=== PATIENT | male | born 1935 | race Caucasian/White ===

== ENCOUNTER 2016-06-11 07:23 | Inpatient (IN) | payer OTHER ==
[~2016-06-11] VITALS: Ht 182.9 cm; Wt 119.0 kg
[~2016-06-11 07:23] MED LIST: ATENOLOL100 MG PO; FINASTERIDE5 MG PO; GLIPIZIDE-METF1 EAC2 PO; LOVASTATIN20 MG PO; ZESTORETIC 20-1 EAC1 PO
[2016-06-11 08:09] LABS: INTER. NORMALIZED RATIO 1.2; PROTHROMBIN TIME 12.7 (9.2-11.2); PTT 30.1 (25-32)
[2016-06-11 08:11] LABS: CREATININE 2.1 mg/dL (0.6-1.3); POTASSIUM 4.7 mEq/L (3.7-5.4)
[2016-06-11 08:14] LABS: EOSINOPHIL (%) 0.7 % (0-5); EOSINOPHIL COUNT 0.1 K/uL (0-0.3); HEMATOCRIT 50.7 % (38.0-50.0); IMMATURE GRANULOCYTE COUNT 1.4 K/uL; LYMPHOCYTE COUNT 2.8 K/uL (1.0-2.8); MCH 28.5 PG (29.0-34.0); MCHC 32.5 G/DL (30.0-36.0); MCV 87.7 FL (86-99); MEAN PLAT.VOLUME 10.4 uM^3 (9.0-12.4); MONOCYTE COUNT 1.1 K/uL (0-0.8); NEUTROPHIL (%) 69.5 % (45-76); NEUTROPHIL COUNT 9.6 K/uL (1.8-6.4); PLATELET COUNT 285 K/uL (156-360); RBC DIS.WIDTH-SD 53.2 % (39-53); RED BLOOD COUNT 5.78 M/uL (4.00-5.50); WHITE BLOOD COUNT 13.8 K/uL (4.1-10.2)
[2016-06-11 08:24] LABS: TROP-I INTERPRETATION NEGATIVE; TROPONIN-I 0.08 ng/mL (0.0-0.30)
[2016-06-11 08:38] LABS: CHLORIDE 98 mEq/L (99-109); POTASSIUM 5.5 mEq/L (3.7-5.4); SODIUM 135 mEq/L (136-147)
[2016-06-11 08:40] LABS: GLUCOSE 229 mg/dL (70-99)
[2016-06-11 08:41] LABS: ANION GAP 21 MEQ/L (2-14)
[2016-06-11 08:42] LABS: TOTAL BILIRUBIN 1.2 mg/dL (0.0-1.0)
[2016-06-11 08:43] LABS: ALKALINE PHOSPHATASE 59 IU/L (3-129)
[2016-06-11 08:44] LABS: GFR ESTIMATE (CALCULATED) 26 mL/min/
[2016-06-11 08:45] LABS: UREA NITROGEN (BUN) 92 mg/dL (9-23)
[2016-06-11 08:47] LABS: CREATINE KINASE 187 IU/L (1-294); TOTAL CK 187 IU/L (1-294)
[2016-06-11 08:52] LABS: CK-MB 9.2 ng/mL (0.0-4.9)
[2016-06-11 10:30] VITALS: BP 103/61
[2016-06-11 11:00] VITALS: BP 107/64
[2016-06-11] MEDS ORDERED: MULTI-VITAMIN1 EAC4 PO (11:01)
[2016-06-11] MEDS ORDERED: PROBIOTIC1 EAC1 PO (11:01)
[2016-06-11] MEDS ORDERED: ATROVENT H200 INHALA IH (11:01)
[2016-06-11 11:30] VITALS: BP 106/84
[2016-06-11 12:03] LABS: D-DIMER ELISA > 4.00 mg/L FEU (< 0.57)
[2016-06-11 12:05] LABS: METH RESISTANT S AUREUS PCR NEGATIVE (NEGATIVE)
[2016-06-11 12:06] LABS: PROBE CHECK PASS; SPECIMEN PROCESSING CONTROL PASS
[2016-06-11 12:09] LABS: BASE EXCESS -7.8 mEq/L (-3 to +3); BICARBONATE 21.9 mEq/L (22-26); CARBOXY HGB 2.1 % (0-5); METHEMOGLOBIN 1.3 % (0-1.5); PCO2 60 mm Hg (35-45); PO2 42 mm Hg (80-100)
[2016-06-11 12:10] LABS: COMMENTS - BLOOD GASES A+C+; DEVICE 840; FI02 100 %; MECHANICAL RATE 16 resp/min; MODE A/C; PEEP 5 CM/H20; SITE ALINE; TIDAL VOLUME 500 ML; TOTAL RESP RATE 25 resp/min; pH 7.17 (7.35-7.45)
[2016-06-11 12:17] LABS: MAGNESIUM 3.2 mg/dL (1.3-2.7)
[2016-06-11 12:53] LABS: INTER. NORMALIZED RATIO 1.3; PROTHROMBIN TIME 13.5 (9.2-11.2); PTT 30.8 (25-32)
[2016-06-11 12:58] LABS: D-DIMER ELISA > 4.00 mg/L FEU (< 0.57)
[2016-06-11 13:07] LABS: CREATINE KINASE 185 IU/L (1-294); TOTAL CK 185 IU/L (1-294)
[2016-06-11 13:12] LABS: TROP-I INTERPRETATION NEGATIVE; TROPONIN-I 0.19 ng/mL (0.0-0.30)
[2016-06-11 13:24] LABS: CK-MB 18.3 ng/mL (0.0-4.9)
[2016-06-11 13:48] LABS: BASE EXCESS -9.8 mEq/L (-3 to +3); BICARBONATE 19.6 mEq/L (22-26); CARBOXY HGB 2.4 % (0-5); METHEMOGLOBIN 1.3 % (0-1.5); PCO2 55 mm Hg (35-45); PO2 55 mm Hg (80-100); pH 7.16 (7.35-7.45)
[2016-06-11 13:49] LABS: COMMENTS - BLOOD GASES C+; DEVICE 840; FI02 100 %; MECHANICAL RATE 22 resp/min; MODE A/C; PEEP 15 CM/H20; SITE ALINE; TIDAL VOLUME 500 ML; TOTAL RESP RATE 25 resp/min
[2016-06-11 14:15] LABS: ANION GAP 17 MEQ/L (2-14); CHLORIDE 100 MEQ/L (99-109); GFR ESTIMATE (CALCULATED) 28 mL/min/; GLUCOSE 213 mg/dL (70-99); POTASSIUM 4.8 MEQ/L (3.7-5.4); SAMPLE HEMOLYSIS CHECK 0; SAMPLE ICTERIC CHECK 0; SAMPLE LIPEMIA CHECK 0; SODIUM 136 MEQ/L (136-147); UREA NITROGEN (BUN) 86 mg/dL (9-23)
[2016-06-11 16:09] LABS: EOSINOPHIL (%) 0.1 % (0-5); HEMATOCRIT 52.7 % (38.0-50.0); IMMATURE GRANULOCYTE (%) 0.7 % (0.0-0.7); IMMATURE GRANULOCYTE COUNT 0.1 K/uL; LYMPHOCYTE COUNT 1.7 K/uL (1.0-2.8); MCH 28.7 PG (29.0-34.0); MCHC 31.5 G/DL (30.0-36.0); MEAN PLAT.VOLUME 10.7 uM^3 (9.0-12.4); MONOCYTE (%) 5.6 % (3-12); MONOCYTE COUNT 1.1 K/uL (0-0.8); NEUTROPHIL (%) 84.3 % (45-76); NEUTROPHIL COUNT 15.7 K/uL (1.8-6.4); PLATELET COUNT 303 K/uL (156-360); RBC DIS.WIDTH-CV 17.1 % (11.8-14.6); RED BLOOD COUNT 5.79 M/uL (4.00-5.50)
[2016-06-11 16:11] LABS: WHITE BLOOD COUNT 18.7 K/uL (4.1-10.2)
[2016-06-11 17:46] LABS: HEMATOLOGY COMMENT 1 SMEAR COMPATIBLE; USER ID SS
[2016-06-11 18:16] LABS: POINT-OF-CARE METER ID UU13113731
[2016-06-11 19:04] LABS: MCH 29.4 PG (29.0-34.0); MCHC 32.8 G/DL (30.0-36.0); MCV 89.5 FL (86-99); RBC DIS.WIDTH-CV 17.2 % (11.8-14.6); RBC DIS.WIDTH-SD 55.4 % (39-53); RED BLOOD COUNT 5.14 M/uL (4.00-5.50); WHITE BLOOD COUNT 13.5 K/uL (4.1-10.2)
[2016-06-11 19:11] LABS: TROP-I INTERPRETATION POSITIVE
[2016-06-11 19:14] LABS: TROPONIN-I 11.94 ng/mL (0.0-0.30)
[2016-06-11 19:16] LABS: EOSINOPHIL (%) 0 % (0-5); IMMATURE GRANULOCYTE (%) 0.2 % (0.0-0.7); LYMPHOCYTE COUNT 1.1 K/uL (1.0-2.8); MONOCYTE (%) 3.6 % (3-12); MONOCYTE COUNT 0.5 K/uL (0-0.8); NEUTROPHIL COUNT 11.9 K/uL (1.8-6.4)
[2016-06-11 19:21] LABS: INTER. NORMALIZED RATIO 1.5; PROTHROMBIN TIME 15.4 (9.2-11.2)
[2016-06-11 19:27] LABS: ANION GAP 16 MEQ/L (2-14); CHLORIDE 98 MEQ/L (99-109); GFR ESTIMATE (CALCULATED) 31 mL/min/; GLUCOSE 212 mg/dL (70-99); MAGNESIUM 2.2 mg/dl (1.3-2.7); SAMPLE HEMOLYSIS CHECK 0; SAMPLE ICTERIC CHECK 0; SAMPLE LIPEMIA CHECK 0; SODIUM 135 MEQ/L (136-147); UREA NITROGEN (BUN) 84 mg/dL (9-23)
[2016-06-11 19:29] LABS: PTT 88.4 (25-32)
[2016-06-11 19:48] LABS: FIBRINOGEN 195 MG/DL (160-450)
[2016-06-11 20:00] LABS: ALKALINE PHOSPHATASE 38 IU/L (3-129); ANION GAP 15 MEQ/L (2-14); CHLORIDE 98 MEQ/L (99-109); CREATINE KINASE 229 IU/L (1-294); GFR ESTIMATE (CALCULATED) 31 mL/min/; GLUCOSE 212 mg/dL (70-99); SAMPLE HEMOLYSIS CHECK 0; SAMPLE ICTERIC CHECK 0; SAMPLE LIPEMIA CHECK 0; SODIUM 133 MEQ/L (136-147); TOTAL BILIRUBIN 1.6 MG/DL (0.0-1.0); TOTAL CK 229 IU/L (1-294); UREA NITROGEN (BUN) 79 mg/dL (9-23)
[2016-06-11 20:14] LABS: HEMATOLOGY COMMENT 1 SMEAR COMPATIBLE
[2016-06-11 20:15] LABS: MEAN PLAT.VOLUME 10.8 uM^3 (9.0-12.4); PLATELET COUNT 195 K/uL (156-360)
[2016-06-11 20:31] LABS: CK-MB 37.1 ng/mL (0.0-4.9)
[2016-06-11 20:31] LABS: BASE EXCESS -6.5 mEq/L (-3 to +3); CARBOXY HGB 2.4 % (0-5); METHEMOGLOBIN 1.3 % (0-1.5); PCO2 48 mm Hg (35-45); PO2 49 mm Hg (80-100); pH 7.25 (7.35-7.45)
[2016-06-11 20:32] LABS: SITE R ALINE
[2016-06-11 20:34] LABS: DEVICE 840; FI02 100 %; MECHANICAL RATE 24 resp/min; MODE AC; TIDAL VOLUME 500 ML; TOTAL RESP RATE 24 resp/min
[2016-06-11 20:35] LABS: PEEP 15 CM/H20
[2016-06-12 00:25] LABS: CREATINE KINASE 295 IU/L (1-294); TOTAL CK 295 IU/L (1-294)
[2016-06-12 00:27] LABS: POINT-OF-CARE METER ID UU13113731
[2016-06-12 00:29] LABS: TROP-I INTERPRETATION POSITIVE
[2016-06-12 00:31] LABS: CK-MB 38.1 ng/mL (0.0-4.9)
[2016-06-12 00:35] LABS: TROPONIN-I 27.66 ng/mL (0.0-0.30)
[2016-06-12 02:29] LABS: POINT-OF-CARE METER ID UU13113748
[2016-06-12 02:36] LABS: EOSINOPHIL (%) 0 % (0-5); HEMATOCRIT 44.7 % (38.0-50.0); IMMATURE GRANULOCYTE (%) 0.1 % (0.0-0.7); IMMATURE GRANULOCYTE COUNT 0.1 K/uL; LYMPHOCYTE COUNT 0.4 K/uL (1.0-2.8); MCH 28.7 PG (29.0-34.0); MCHC 33.3 G/DL (30.0-36.0); MEAN PLAT.VOLUME 10.2 uM^3 (9.0-12.4); MONOCYTE (%) 3.7 % (3-12); MONOCYTE COUNT 0.4 K/uL (0-0.8); NEUTROPHIL (%) 92.2 % (45-76); NEUTROPHIL COUNT 8.7 K/uL (1.8-6.4); PLATELET COUNT 174 K/uL (156-360); RBC DIS.WIDTH-CV 17.1 % (11.8-14.6); RBC DIS.WIDTH-SD 53.5 % (39-53)
[2016-06-12 02:37] LABS: WHITE BLOOD COUNT 9.4 K/uL (4.1-10.2)
[2016-06-12 02:38] LABS: CHLORIDE 100 mEq/L (99-109); POTASSIUM 4.2 mEq/L (3.7-5.4); SODIUM 138 mEq/L (136-147)
[2016-06-12 02:40] LABS: GLUCOSE 243 mg/dL (70-99); MAGNESIUM 2.3 mg/dL (1.3-2.7)
[2016-06-12 02:42] LABS: ANION GAP 21 MEQ/L (2-14)
[2016-06-12 02:44] LABS: GFR ESTIMATE (CALCULATED) 31 mL/min/
[2016-06-12 02:45] LABS: UREA NITROGEN (BUN) 87 mg/dL (9-23)
[2016-06-12 02:47] LABS: BASE EXCESS -2.8 mEq/L (-3 to +3); BICARBONATE 21.9 mEq/L (22-26); CARBOXY HGB 2.6 % (0-5); COMMENTS - BLOOD GASES C+; DEVICE 840 VENT; FI02 100 %; MECHANICAL RATE 28 resp/min; METHEMOGLOBIN 1.5 % (0-1.5); MODE AC VC+; PCO2 37 mm Hg (35-45); PO2 49 mm Hg (80-100); SITE ALINE; TOTAL RESP RATE 28 resp/min; pH 7.38 (7.35-7.45)
[2016-06-12 02:48] LABS: INSPIRATION TIME 1.07 seconds; PEEP 15 CM/H20; TIDAL VOLUME 500 ML
[2016-06-12 02:48] LABS: INTER. NORMALIZED RATIO 1.3; PROTHROMBIN TIME 13.5 (9.2-11.2); PTT 30.9 (25-32)
[2016-06-12 06:35] LABS: POINT-OF-CARE METER ID UU13113748
[2016-06-12 07:49] LABS: HEMATOCRIT 44.1 % (38.0-50.0); MCH 27.9 PG (29.0-34.0); MCHC 32.2 G/DL (30.0-36.0); MCV 86.6 FL (86-99); MEAN PLAT.VOLUME 10.2 uM^3 (9.0-12.4); PLATELET COUNT 173 K/uL (156-360); RBC DIS.WIDTH-CV 16.9 % (11.8-14.6); RBC DIS.WIDTH-SD 52.7 % (39-53); RED BLOOD COUNT 5.09 M/uL (4.00-5.50); WHITE BLOOD COUNT 8.9 K/uL (4.1-10.2)
[2016-06-12 07:55] LABS: EOSINOPHIL (%) 0 % (0-5); IMMATURE GRANULOCYTE (%) 0.2 % (0.0-0.7); LYMPHOCYTE COUNT 0.6 K/uL (1.0-2.8); MONOCYTE COUNT 0.2 K/uL (0-0.8); NEUTROPHIL COUNT 8.1 K/uL (1.8-6.4)
[2016-06-12 08:05] LABS: BASE EXCESS -2.5 mEq/L (-3 to +3); BICARBONATE 21.7 mEq/L (22-26); CARBOXY HGB 2.4 % (0-5); METHEMOGLOBIN 1.4 % (0-1.5); PCO2 35 mm Hg (35-45); PO2 48 mm Hg (80-100); SITE ALINE
[2016-06-12 08:06] LABS: COMMENTS - BLOOD GASES C+; DEVICE 840; FI02 100 %; MODE BILEVEL; PEEP 5 CM/H20; TIDAL VOLUME 600 ML; TOTAL RESP RATE 12 resp/min
[2016-06-12 08:10] LABS: INTER. NORMALIZED RATIO 1.4; PTT 35.4 (25-32)
[2016-06-12 08:11] LABS: ALKALINE PHOSPHATASE 35 IU/L (3-129); ANION GAP 16 MEQ/L (2-14); CHLORIDE 96 MEQ/L (99-109); DIRECT BILIRUBIN 0.9 mg/dL (0.0-0.3); GFR ESTIMATE (CALCULATED) 34 mL/min/; GLUCOSE 263 mg/dL (70-99); MAGNESIUM 2.1 mg/dl (1.3-2.7); POTASSIUM 3.6 MEQ/L (3.7-5.4); SAMPLE HEMOLYSIS CHECK 0; SAMPLE ICTERIC CHECK 0; SAMPLE LIPEMIA CHECK 0; SODIUM 134 MEQ/L (136-147); TOTAL BILIRUBIN 1.9 MG/DL (0.0-1.0); UREA NITROGEN (BUN) 80 mg/dL (9-23)
[2016-06-12 08:14] LABS: TROP-I INTERPRETATION POSITIVE; TROPONIN-I 8.82 ng/mL (0.0-0.30)
[2016-06-12 08:31] LABS: CREATINE KINASE 192 IU/L (1-294); TOTAL CK 192 IU/L (1-294)
[2016-06-12 09:23] LABS: BASE EXCESS -3.7 mEq/L (-3 to +3); BICARBONATE 22.1 mEq/L (22-26); CARBOXY HGB 2.9 % (0-5); METHEMOGLOBIN 1.7 % (0-1.5); PCO2 42 mm Hg (35-45); PO2 48 mm Hg (80-100); pH 7.33 (7.35-7.45)
[2016-06-12 09:23] LABS: CK-MB 40.9 ng/mL (0.0-4.9)
[2016-06-12 09:24] LABS: DEVICE 840; FI02 100 %; INSPIRATION TIME 4.5 seconds; MECHANICAL RATE 10 resp/min; MODE BILEVEL; PEEP 5 CM/H20; PRES. SUPPORT 30 CM/H2O; SITE ALINE
[2016-06-12 10:37] LABS: POINT-OF-CARE METER ID UU13113748
[2016-06-12 11:42] LABS: ADD MIUA? YES; BILIRUBIN NEGATIVE; BLOOD LARGE; COLOR STRAW ((YELLOW)); GLUCOSE (STRIP) 50; KETONES 5; LEUKOCYTES TRACE; NITRITE NEGATIVE; PROTEIN (STRIP) NEGATIVE; SPECIFIC GRAVITY 1.005 (1.000-1.030); UROBILINOGEN 0.2 MG/DL (0.2-1.0)
[2016-06-12 11:43] LABS: BASE EXCESS 0.4 mEq/L (-3 to +3); BICARBONATE 21.4 mEq/L (22-26); CARBOXY HGB 2.7 % (0-5); METHEMOGLOBIN 1.4 % (0-1.5); PCO2 25 mm Hg (35-45); PO2 81 mm Hg (80-100); pH 7.54 (7.35-7.45)
[2016-06-12 11:45] LABS: DEVICE 840; FI02 100 %; INSPIRATION TIME 3.75 seconds; MECHANICAL RATE 12 resp/min; MODE BILEVEL; PEEP 5 CM/H20; SITE ALINE
[2016-06-12 12:05] LABS: BACTERIA NONE SEEN /HPF; CASTS NONE SEEN /LPF; CRYSTALS NONE SEEN; EPITHELIAL CELLS RARE /HPF; MUCUS NONE SEEN /LPF; PATHOLOGICAL CAST NONE SEEN; RED BLOOD CELLS TNTC /HPF (0-5); SMALL ROUND CELL NONE SEEN; UCUL ADDED? NO; YEAST-LIKE CELL NONE SEEN
[2016-06-12 12:39] LABS: UR CREATININE CONCENTRATION 7.7 MG/DL
[2016-06-12 14:10] LABS: POINT-OF-CARE METER ID UU13113748
[2016-06-12 15:05] LABS: HEMATOCRIT 44.6 % (38.0-50.0); MCH 29.3 PG (29.0-34.0); MCHC 33.9 G/DL (30.0-36.0); MCV 86.6 FL (86-99); MEAN PLAT.VOLUME 10.8 uM^3 (9.0-12.4); PLATELET COUNT 183 K/uL (156-360); RBC DIS.WIDTH-CV 16.9 % (11.8-14.6); RBC DIS.WIDTH-SD 52.1 % (39-53); RED BLOOD COUNT 5.15 M/uL (4.00-5.50); WHITE BLOOD COUNT 10.7 K/uL (4.1-10.2)
[2016-06-12 15:28] LABS: INTER. NORMALIZED RATIO 1.4
[2016-06-12 15:30] LABS: ANION GAP 18 MEQ/L (2-14); CHLORIDE 94 MEQ/L (99-109); GFR ESTIMATE (CALCULATED) 34 mL/min/; GLUCOSE 236 mg/dL (70-99); MAGNESIUM 2.1 mg/dl (1.3-2.7); POTASSIUM 3.9 MEQ/L (3.7-5.4); SAMPLE HEMOLYSIS CHECK 0; SAMPLE ICTERIC CHECK 0; SAMPLE LIPEMIA CHECK 0; SODIUM 135 MEQ/L (136-147); UREA NITROGEN (BUN) 77 mg/dL (9-23)
[2016-06-12 15:43] LABS: BASE EXCESS 2.3 mEq/L (-3 to +3); BICARBONATE 25.1 mEq/L (22-26); CARBOXY HGB 2.5 % (0-5); METHEMOGLOBIN 1.5 % (0-1.5); pH 7.49 (7.35-7.45)
[2016-06-12 15:44] LABS: PCO2 33 mm Hg (35-45); PO2 57 mm Hg (80-100)
[2016-06-12 15:44] LABS: PTT 61.1 (25-32)
[2016-06-12 15:45] LABS: COMMENTS - BLOOD GASES C+ANA; DEVICE 840 PB; FI02 100 %; MECHANICAL RATE 12 resp/min; MODE BILEVEL; SITE ALINE; TOTAL RESP RATE 16 resp/min
[2016-06-12 15:46] LABS: PRES. SUPPORT 30 CM/H2O
[2016-06-12 17:46] LABS: POINT-OF-CARE METER ID UU13113748
[2016-06-12 18:16] LABS: EOSINOPHIL (%) 0 % (0-5); IMMATURE GRANULOCYTE (%) 0.3 % (0.0-0.7); LYMPHOCYTE COUNT 0.9 K/uL (1.0-2.8); MONOCYTE COUNT 0.3 K/uL (0-0.8); NEUTROPHIL (%) 88.4 % (45-76); NEUTROPHIL COUNT 9.5 K/uL (1.8-6.4)
[2016-06-12 19:57] LABS: HEMATOCRIT 40.1 % (38.0-50.0); MCH 28.7 PG (29.0-34.0); MCHC 33.7 G/DL (30.0-36.0); MCV 85.3 FL (86-99); MEAN PLAT.VOLUME 10.9 uM^3 (9.0-12.4); PLATELET COUNT 161 K/uL (156-360); RBC DIS.WIDTH-CV 16.5 % (11.8-14.6); RBC DIS.WIDTH-SD 50.9 % (39-53); WHITE BLOOD COUNT 9.2 K/uL (4.1-10.2)
[2016-06-12 20:00] VITALS: BP 85/48
[2016-06-12 20:05] LABS: EOSINOPHIL (%) 0 % (0-5); IMMATURE GRANULOCYTE (%) 0.3 % (0.0-0.7); LYMPHOCYTE COUNT 0.6 K/uL (1.0-2.8); MONOCYTE (%) 2.4 % (3-12); MONOCYTE COUNT 0.2 K/uL (0-0.8); NEUTROPHIL (%) 91.2 % (45-76); NEUTROPHIL COUNT 8.4 K/uL (1.8-6.4)
[2016-06-12 20:13] LABS: INTER. NORMALIZED RATIO 1.4; PROTHROMBIN TIME 14.3 (9.2-11.2); PTT 73.1 (25-32)
[2016-06-12 20:19] LABS: ANION GAP 18 MEQ/L (2-14); CHLORIDE 95 MEQ/L (99-109); GFR ESTIMATE (CALCULATED) 36 mL/min/; GLUCOSE 211 mg/dL (70-99); POTASSIUM 3.5 MEQ/L (3.7-5.4); SAMPLE HEMOLYSIS CHECK 0; SAMPLE ICTERIC CHECK 0; SAMPLE LIPEMIA CHECK 0; SODIUM 137 MEQ/L (136-147); UREA NITROGEN (BUN) 77 mg/dL (9-23)
[2016-06-12 21:00] VITALS: BP 71/44
[2016-06-12 21:37] LABS: BASE EXCESS 3.1 mEq/L (-3 to +3); CARBOXY HGB 2.4 % (0-5); METHEMOGLOBIN 1.3 % (0-1.5); PO2 52 mm Hg (80-100); pH 7.46 (7.35-7.45)
[2016-06-12 21:38] LABS: COMMENTS - BLOOD GASES ALINE; DEVICE 840; FI02 100 %; MECHANICAL RATE 12 resp/min; PCO2 38 mm Hg (35-45); SITE RR; TOTAL RESP RATE 18 resp/min
[2016-06-12 21:39] LABS: INSPIRATION TIME 3.5 seconds; PEEP 8 CM/H20; PRES. SUPPORT 30 CM/H2O
[2016-06-12 21:40] LABS: MODE BILEVEL 25/8; PRESSURE CONTROL VENTILATION 25 CM H20
[2016-06-12 22:25] LABS: POINT-OF-CARE METER ID UU13113748
[2016-06-13 02:25] LABS: EOSINOPHIL (%) 0 % (0-5); HEMATOCRIT 41.8 % (38.0-50.0); IMMATURE GRANULOCYTE (%) 0.2 % (0.0-0.7); IMMATURE GRANULOCYTE COUNT 0.3 K/uL; LYMPHOCYTE COUNT 0.4 K/uL (1.0-2.8); MCH 28.5 PG (29.0-34.0); MCHC 34.2 G/DL (30.0-36.0); MCV 83.4 FL (86-99); MEAN PLAT.VOLUME 10.4 uM^3 (9.0-12.4); MONOCYTE (%) 5.5 % (3-12); MONOCYTE COUNT 0.8 K/uL (0-0.8); NEUTROPHIL (%) 91.8 % (45-76); PLATELET COUNT 255 K/uL (156-360); RBC DIS.WIDTH-CV 17.2 % (11.8-14.6); RBC DIS.WIDTH-SD 50.3 % (39-53); RED BLOOD COUNT 5.01 M/uL (4.00-5.50); WHITE BLOOD COUNT 15.2 K/uL (4.1-10.2)
[2016-06-13 02:35] LABS: CHLORIDE 97 mEq/L (99-109); POTASSIUM 3.7 mEq/L (3.7-5.4); SODIUM 138 mEq/L (136-147)
[2016-06-13 02:37] LABS: GLUCOSE 188 mg/dL (70-99)
[2016-06-13 02:38] LABS: ANION GAP 19 MEQ/L (2-14); INTER. NORMALIZED RATIO 1.4; PROTHROMBIN TIME 14.3 (9.2-11.2); PTT 52.6 (25-32)
[2016-06-13 02:41] LABS: GFR ESTIMATE (CALCULATED) 32 mL/min/
[2016-06-13 02:42] LABS: UREA NITROGEN (BUN) 80 mg/dL (9-23)
[2016-06-13 04:00] VITALS: BP 71/44
[2016-06-13 04:11] LABS: BASE EXCESS 3.1 mEq/L (-3 to +3); BICARBONATE 25.3 mEq/L (22-26); CARBOXY HGB 2.6 % (0-5); COMMENTS - BLOOD GASES C+; DEVICE 840; FI02 100 %; MECHANICAL RATE 12 resp/min; METHEMOGLOBIN 1.6 % (0-1.5); PCO2 31 mm Hg (35-45); PO2 70 mm Hg (80-100); SITE RR ALINE; TOTAL RESP RATE 15 resp/min; pH 7.52 (7.35-7.45)
[2016-06-13 04:12] LABS: INSPIRATION TIME 3.5 seconds; MODE BILEVEL 25/8
[2016-06-13 05:22] LABS: POINT-OF-CARE METER ID UU14162636
[2016-06-13 06:06] LABS: HEMATOCRIT 40.6 % (38.0-50.0); MCH 29.5 PG (29.0-34.0); MCHC 34.5 G/DL (30.0-36.0); MCV 85.7 FL (86-99); MEAN PLAT.VOLUME 10.8 uM^3 (9.0-12.4); PLATELET COUNT 248 K/uL (156-360); RBC DIS.WIDTH-SD 51.8 % (39-53); RED BLOOD COUNT 4.74 M/uL (4.00-5.50); WHITE BLOOD COUNT 16.3 K/uL (4.1-10.2)
[2016-06-13 06:18] LABS: INTER. NORMALIZED RATIO 1.4; PROTHROMBIN TIME 13.9 (9.2-11.2); PTT 39.7 (25-32)
[2016-06-13 06:29] LABS: ANION GAP 18 MEQ/L (2-14); CHLORIDE 95 MEQ/L (99-109); GFR ESTIMATE (CALCULATED) 29 mL/min/; GLUCOSE 197 mg/dL (70-99); MAGNESIUM 2.2 mg/dl (1.3-2.7); POTASSIUM 3.8 MEQ/L (3.7-5.4); SAMPLE HEMOLYSIS CHECK 0; SAMPLE ICTERIC CHECK 0; SAMPLE LIPEMIA CHECK 0; SODIUM 137 MEQ/L (136-147); UREA NITROGEN (BUN) 83 mg/dL (9-23)
[2016-06-13 06:40] LABS: EOSINOPHIL (%) 0 % (0-5); IMMATURE GRANULOCYTE (%) 0.4 % (0.0-0.7); IMMATURE GRANULOCYTE COUNT 0.1 K/uL; MONOCYTE (%) 3.6 % (3-12); MONOCYTE COUNT 0.6 K/uL (0-0.8); NEUTROPHIL (%) 89.9 % (45-76); NEUTROPHIL COUNT 14.7 K/uL (1.8-6.4)
[2016-06-13 07:00] VITALS: BP 108/62
[2016-06-13 09:18] LABS: INTERNAL CONTROL VALID? YES
== END 2016-06-13 14:11 | DRG 871 ==
LOC: EME → EDBD 07:23 → EME 07:23 → 4WEST 09:16 → EDOF 09:16 → 4WEST 10:01
PROVIDERS: Emergency Medicine; Internal Medicine Critical Care Medicine; Internal Medicine Nephrology
PROC: 5A1945Z Respiratory Ventilation, 24-96 Consecutive Hours (ICD-10-PCS; principal; 2016-06-11)
DX: A41.01 Sepsis due to Methicillin susceptible Staphylococcus aureus (principal); I26.99 Other pulmonary embolism without acute cor pulmonale; I46.8 Cardiac arrest due to other underlying condition; R57.9 Shock, unspecified; G93.1 Anoxic brain damage, not elsewhere classified; R40.2432 Glasgow coma scale score 3-8, at arrival to emergency department; N18.9 Chronic kidney disease, unspecified; I25.10 Atherosclerotic heart disease of native coronary artery without angina pectoris; J44.9 Chronic obstructive pulmonary disease, unspecified; E78.5 Hyperlipidemia, unspecified; E11.22 Type 2 diabetes mellitus with diabetic chronic kidney disease; I12.9 Hypertensive chronic kidney disease with stage 1 through stage 4 chronic kidney disease, or unspecified chronic kidney disease; M19.90 Unspecified osteoarthritis, unspecified site; E11.42 Type 2 diabetes mellitus with diabetic polyneuropathy; R56.9 Unspecified convulsions; Z66 Do not resuscitate; Z51.5 Encounter for palliative care; E87.2 Acidosis; J96.01 Acute respiratory failure with hypoxia; J45.909 Unspecified asthma, uncomplicated; E83.51 Hypocalcemia; E11.65 Type 2 diabetes mellitus with hyperglycemia; E83.39 Other disorders of phosphorus metabolism; Z87.891 Personal history of nicotine dependence
CPT/HCPCS: 36600; 36620; 70450; 71010; 71250; 74176; 80047; 80048; 80048 91; 80053; 80076; 81003; 82330; 82550; 82550 91; 82553; 82570; 82803; 82948; 83605; 83735; 84100; 84156; 84300; 84484; 85025; 85025 91; 85379; 85384; 85610; 85730; 87040; 87070; 87077; 87186; 87205; 87449; 87641; 87801; 93005; 93306; 93970; 94002; 94003; 94640; 94640 76; 99202; 99281; 99285; C9113; J0610; J1815; J1940; J1953; J2060; J2270; J2543; J2920; J2930; J3370; J3480; J7030; J7040; J7050; J7070; J7120; P9045